=== PATIENT | female | born 1960 | race Hispanic/Latino ===

== ENCOUNTER 2016-12-07 09:04 | Outpatient (CLI) | payer MEDICARE ==
--- NOTE | 2016-12-07 10:58 | RAD ---
SIX VIEWS CERVICAL SPINE: History: Neck pain, bilateral arm pain and numbness. FINDINGS: There is post-surgical spinal instrumentation spanning C3 through T1. Articular pillar screws are se en bilaterally at C3, C4, C5, C6 and T1. Instrumentation projects in the expected position. There ar e laminectomy changes seen from C3 through C6. There is slight anterolisthesis seen of C2 on C3 that is accentuated with flexion and reduced with extension. Prevertebral soft tissues are normal appear ing. Lung apices are clear. Lateral masses are symmetric. IMPRESSION: 1. Posterolateral spinal fusion from C3 through T1. 2. Abnormal anterior translation of C2 on C3 with abnormal translational motion as above. This is li durga related to adjacent signal degenerative change. 3. Multilevel moderate spondylosis of the cervical spine. POS: ZULLY
--- NOTE | 2016-12-07 11:41 | CT ---
CT OF THE CERVICAL SPINE WITHOUT CONTRAST: Indication: Neck pain with bilateral arm pain and numbness. Comparison: 07-28-14 FINDINGS: The posterolateral spinal instrumentation spanning C3 through T1 appears similar to the comparison e xamination. Laminectomies from C3 through C6 are stable. There is advanced facet joint degenerative change seen on the left at C2-3 which appears to have pro gressed from the prior exam. There is moderate right facet joint degenerative change. There is uncal vertebral hypertrophy. Constellation of findings induces mild to moderate bilateral osseous neural foraminal narrowing. C3-4: There is no appreciable osseous central canal or neural foraminal narrowing. C4-5: There is no appreciable osseous central canal or neural foraminal narrowing. C5-6: There is some residual uncal vertebral hypertrophy on the right inducing mild to moderate righ t neural foraminal narrowing. C6-7: There is no appreciable osseous central canal or neural foraminal narrowing. C7-T1: There is no appreciable osseous central canal or neural foraminal narrowing. T1-2: There is no appreciable central canal or neural foraminal narrowing. IMPRESSION: 1. Worsening adjacent segment degeneration at C2-3 with mild to moderate bilateral neural foraminal narrowing. 2. Mild to moderate right neural foraminal narrowing at C5-6. 3. Post-operative change of the cervical spine. POS: ZULLY
== END 2016-12-07 09:05 | disposition home or self-care (01) ==
LOC: TBSIIMAG 09:04
PROVIDERS: ATTEND Surgery
DX: M47.22 Other spondylosis with radiculopathy, cervical region (principal); M99.51 Intervertebral disc stenosis of neural canal of cervical region; Z98.890 Other specified postprocedural states
CPT/HCPCS: 72050; 72125

== ENCOUNTER 2017-05-18 08:30 | Outpatient (CLI) | payer MEDICARE ==
--- NOTE | 2017-05-18 10:33 | ULT ---
ULTRASOUND OF THE SPLEEN: Date: 05/18/17 HISTORY: Patient with polycythemia. Evaluate for spleen size. FINDINGS: The spleen measures 9.6 cm in greatest dimension. There are a few scattered echogenic foci seen withi n the spleen suggesting splenic granulomata. Arterial Doppler evaluation of the splenic artery does d emonstrate arterial waveform. Venous waveform is seen within the spleen vein, and this does demonstra te normal directional flow. No free fluid is seen in the left upper quadrant. IMPRESSION: 1. The spleen is normal in size without evidence of splenomegaly. Calcified granulomata are seen in the spleen. 2. Normal directional flow seen in the splenic vein with Doppler evaluation demonstrating arterial w aveform in the splenic artery. POS: H
== END 2017-05-18 08:31 | disposition home or self-care (01) ==
LOC: ULT 08:30
PROVIDERS: ATTEND Internal Medicine Medical Oncology
DX: D75.1 Secondary polycythemia (principal); R16.1 Splenomegaly, not elsewhere classified; D73.89 Other diseases of spleen
CPT/HCPCS: 76705

== ENCOUNTER 2017-10-11 10:38 | Outpatient (CLI) | payer MEDICARE | END 2017-10-11 10:39 | disposition home or self-care (01) | LOC: BICMRI 10:38 | PROVIDERS: ATTEND Nurse Practitioner Family | DX: M51.17 Intervertebral disc disorders with radiculopathy, lumbosacral region (principal); M48.061 Spinal stenosis, lumbar region without neurogenic claudication; M48.07 Spinal stenosis, lumbosacral region; M99.83 Other biomechanical lesions of lumbar region | CPT/HCPCS: 72148 ==

== ENCOUNTER 2019-02-12 11:56 | Day surgery (SDC) | payer MEDICARE ==
[2019-02-11 14:48] VITALS: BMI 36.3
[~2019-02-12 11:56] MED LIST: PROPOFOL 200 MG/20 ML VIAL ONE
[2019-02-12] MEDS ORDERED: Ketamine 50 MG/ML (10ML VIAL) ONE (12:00)
[2019-02-12] MEDS ORDERED: Fentanyl 100 MCG/2 ML VIAL ONE (12:00)
[2019-02-12] MEDS ORDERED: Midazolam HCl 2 mg/2 ml Vial ONE (12:00)
[2019-02-12] MEDS ORDERED: Propofol 1,000 MG/100 ML VIAL IV ONE (12:00)
[2019-02-12] MEDS ORDERED: Bupivacaine PF 0.5% 30 ML VIAL ONE (13:29)
[2019-02-12] MEDS ORDERED: EPINEPHrine 1 MG/ML AMP ONE (13:29)
[2019-02-12] MEDS ORDERED: Morphine 2 MG/ML SYRINGE ONE ×2 (16:44→17:05)
--- NOTE | 2019-02-12 19:09 | RAD ---
CERVICAL SPINE: 02/12/19 A single AP projection taken in the OR with fluoroscopy. INDICATIONS: Dorsal column stimulator placement. FINDINGS/IMPRESSION: The leads overlie the upper thoracic and lower cervical spine on this single AP projection. Pedicle s crews and rods are seen throughout the visualized cervical spine. POS: OFF
--- NOTE | 2019-02-13 00:04 | OP ---
DATE OF PROCEDURE: 02/12/2019 PREOPERATIVE DIAGNOSES: 1. Postlaminectomy syndrome. 2. Chronic pain syndrome. 3. Cervical radiculopathy. POSTOPERATIVE DIAGNOSES: 1. Postlaminectomy syndrome. 2. Chronic pain syndrome. 3. Cervical radiculopathy. PROCEDURES PERFORMED: 1. Spinal cord stimulator generator implant. 2. Spinal cord stimulator lead implant x2. BLOOD LOSS: 5 mL. DESCRIPTION OF PROCEDURE: The patient was taken to the procedure room and placed prone on the procedure room table. A time-out was performed. Using DuraPrep, we cleansed the back and sterile drapes were applied. Using fluoroscopy, we located the interspace of T3-T4. We anesthetized the skin with 0.5% Marcaine with epinephrine. We inserted the supplied Touhy needle in a paramedian fashion and engaged ligament. Loss of resistance to air was used to achieve access to the epidural space. An 8-contact lead was then threaded up the midline dorsal epidural space using continuous fluoroscopy up to the mid body of C6. A contralateral lead was placed using the exact same technique on the contralateral side, and stimulation was then performed with the patient awake and the patient noted paresthesia in all pain areas. We then made an incision between the two leads, and we gradually brought the leads through the insertion point and down into the incision made. Anchors were placed over the leads and inserted down to fascia. These were clicked to secure them to the leads. We then used 2-0 silk suture x2 for each lead to secure them to the fascia. The skin was anesthetized in the right upper buttock. The scalpel was used to make an incision. This was blunt dissected down to Lexie fascia. We then used a tunneling device to make a tunnel between the two incisions. The lead was then placed through the tunneling device and advanced to the battery pocket. The leads were then inserted into the battery. These were then secured to the battery using a torque wrench. The battery was inserted into the pocket. We then used 2-0 Vicryl suture in simple interrupted fashion in multiple layers to close the fascial layers. 3-0 Rapide Vicryl was used for a subcuticular stitch. Dermabond was placed as an occlusive dressing over both incisions. The patient was taken to the PACU under stable condition. Job ID: [id number]
== END 2019-02-12 17:45 | disposition home or self-care (01) ==
LOC: SDC 11:56
PROVIDERS: ATTEND Specialist
PROC: 0JH70DZ Insertion of Multiple Array Stimulator Generator into Back Subcutaneous Tissue and Fascia, Open Approach (ICD-10-PCS; principal; 2019-02-12)
PROC: 00HU3MZ Insertion of Neurostimulator Lead into Spinal Canal, Percutaneous Approach (ICD-10-PCS; 2019-02-12)
DX: M96.1 Postlaminectomy syndrome, not elsewhere classified (principal); G89.4 Chronic pain syndrome; M54.12 Radiculopathy, cervical region; Z79.4 Long term (current) use of insulin; Z79.899 Other long term (current) drug therapy; Z91.048 Other nonmedicinal substance allergy status
CPT/HCPCS: 72020; 76000; J0171; J0690; J2250; J2270; J2704; J3010; S0020

== ENCOUNTER 2019-03-28 09:51 | Outpatient (CLI) | payer MEDICARE ==
--- NOTE | 2019-03-28 12:03 | RAD ---
EXAM: XR Lumbar Spine Min 4 View PROVIDED CLINICAL HISTORY: Lumbar spondylosis. Patient states pain extending down bilateral legs. COMPARISON: 11/25/2012 FINDINGS: There are 5 nonrib-bearing lumbar-type vertebral bodies. Multilevel osteophytes are seen predominantl y involving the lower lumbar spine. There is severe narrowing of the L4-5 and L5-S1 intervertebral disc spaces. There does appear to be mild grade 1 anterolisthesis of L5 on S1 although the exact degr ee is difficult to measure due to overlying iliac bones. There is trace retrolisthesis of L4 on L5. The vertebral body heights are within normal limits. Multilevel osteophytes are identified. Definitiv e abnormal translational motion is not seen, but this is again difficult to evaluate secondary to overlying iliac bones. Vascular calcifications are seen in the abdominal aorta and involving the iliac arteries. IMPRESSION: 1. Degenerative changes predominantly involving the lower lumbar spine. 2. Grade 1 anterolisthesis of L5 on S1. The degree of listhesis is difficult to adequately measure du e to overlying iliac bones but measures approximately 1.3 cm.
== END 2019-03-28 09:52 | disposition home or self-care (01) ==
LOC: BICRAD 09:51
PROVIDERS: ATTEND Nurse Practitioner Family
DX: M43.06 Spondylolysis, lumbar region (principal); M43.17 Spondylolisthesis, lumbosacral region
CPT/HCPCS: 72110

== ENCOUNTER 2019-12-30 16:44 | Emergency (ER) | payer MEDICARE ==
--- NOTE | 2019-12-30 17:46 | ULT ---
EXAM: US Soft Tissue Other PROVIDED CLINICAL HISTORY: Patient with dorsal column stimulator device in place with pain over lying the region of the battery pack. COMPARISON: None FINDINGS/IMPRESSION: Limited sonographic evaluation of the right gluteal soft tissues was performed. There is a large area of shadowing in the right gluteal soft tissues likely corresponding to metallic battery pack seen on recent lumbar radiograph on 03/28/2019. No definitive fluid is able to be delineated in this region . Just superior to this region is an echogenic structure with posterior shadowing with question minimal surrounding fluid which may represent small amount of fluid surrounding the visualized proxim al AICD lead. This is difficult to definitively confirm on this exam.
== END 2019-12-30 17:44 | disposition home or self-care (01) ==
LOC: ERS 16:44
DX: T84.498A Other mechanical complication of other internal orthopedic devices, implants and grafts, initial encounter (principal); E11.9 Type 2 diabetes mellitus without complications; K21.9 Gastro-esophageal reflux disease without esophagitis; E78.5 Hyperlipidemia, unspecified; I10 Essential (primary) hypertension; F32.9 Major depressive disorder, single episode, unspecified; F41.9 Anxiety disorder, unspecified; Z79.899 Other long term (current) drug therapy; Z79.4 Long term (current) use of insulin
CPT/HCPCS: 76999

== ENCOUNTER 2020-01-30 06:53 | Outpatient (CLI) | payer MEDICARE ==
[2020-01-31 03:07] LABS: SARS-CoV-2 MS2 Positive; SARS-CoV-2 N Gene Negative; SARS-CoV-2 S Gene Negative; SARS-CoV-2 by NAA Not Detected (NotDetected); SARS-CoV-2 orf1ab Negative
== END 2020-01-30 06:54 | disposition home or self-care (01) ==
LOC: LABBT 06:53
PROVIDERS: ATTEND Specialist
DX: Z20.828 Contact with and (suspected) exposure to other viral communicable diseases (principal)
CPT/HCPCS: 87635; U0003

== ENCOUNTER 2020-02-04 11:53 | Day surgery (SDC) | payer MEDICARE ==
[~2020-02-04 11:53] MED LIST changes: +Dexamethasone 20 MG/5 ML VIAL ONE; +Glycopyrrolate 0.2 MG/ML 5 ML SYRINGE ONE; +Ketorolac Tromethamine 30 MG/ML VIAL ONE; +Lidocaine 1% PF 5 ML VIAL ONE; +Ondansetron PF 4 MG/2 ML Vial ONE; +PHENYLEPHRINE-NS 100 MCG/ML 10 ML SYRINGE ONE; +Rocuronium Bromide 10 MG/ML (10ML VIAL) ONE
[2020-02-04] MEDS ORDERED: EPINEPHrine 1 MG/ML AMP ONE (12:10)
[2020-02-04] MEDS ORDERED: Bupivacaine PF 0.5% 30 ML VIAL ONE (12:10)
[2020-02-04] MEDS ORDERED: Lidocaine 1% w/Epinephrine 1:100K 20 ML VIAL ONE (12:10)
[2020-02-04] MEDS ORDERED: Fentanyl 100 MCG/2 ML VIAL ONE ×3 (12:41→15:22)
--- NOTE | 2020-02-04 23:35 | OP ---
DATE OF PROCEDURE: 02/04/2020 PREOPERATIVE DIAGNOSES: 1. Post-laminectomy syndrome. 2. Chronic pain syndrome. 3. Cervical radiculopathy. POSTOPERATIVE DIAGNOSES: 1. Post-laminectomy syndrome. 2. Chronic pain syndrome. 3. Cervical radiculopathy. PROCEDURE PERFORMED: 1. Spinal cord stimulator generator removal. 2. Spinal cord stimulator lead removal x2. 3. Spinal cord stimulator anchor removal x2. SPECIMENS REMOVED: 1. Spinal cord stimulator generator. 2. Spinal cord stimulator leads x2. 3. Spinal cord stimulator anchors x2. DESCRIPTION OF PROCEDURE: The patient was taken to the operating room and placed prone on the operating room table. Back was prepped with DuraPrep. Sterile drapes were applied. We located the anchors using fluoroscopy. We anesthetized the skin and made an incision and then blunt dissected this down to the anchors. We cut the anchors loose and gently pulled on the leads and they came out of the epidural space easily and intact. We then anesthetized the skin over the battery pocket and blunt dissected this down to the battery pocket. We removed the battery which came out easily. We found that the leads were extremely coiled and this apparently was coiled all the way up to the anchor sites. At the anchor site, there were fractured leads. The insulation around the leads were intact, however, we can see the wires are fractured at this point. The leads were released from the battery and they were pulled through gently to the anchor site and they came out intact. The battery was also removed. We irrigated with saline and then we used the Bovie to cut out the scar tissues that exposed the battery pocket. We then used 2-0 Vicryl sutures battery pocket with simple interrupted sutures. We approximated the fascial layers using 2-0 Vicryl sutures in simple interrupted and horizontal mattress type stitches in multiple layers. We then used 3-0 repeat to approximate the skin layer and used a layer of Dermabond as an occlusive dressing. Once this was dry, we placed sterile 4x4s over the incisions and used paper tape to secure this to skin. The patient was taken to the PACU under stable condition. Job ID: [id number]
== END 2020-02-04 17:00 | disposition home or self-care (01) ==
LOC: SDC 11:53
PROVIDERS: ATTEND Specialist
PROC: 00PU3MZ Removal of Neurostimulator Lead from Spinal Canal, Percutaneous Approach (ICD-10-PCS; principal; 2020-02-04)
PROC: 0JPT0MZ Removal of Stimulator Generator from Trunk Subcutaneous Tissue and Fascia, Open Approach (ICD-10-PCS; 2020-02-04)
DX: T85.112A Breakdown (mechanical) of implanted electronic neurostimulator of spinal cord electrode (lead), initial encounter (principal); T85.840A Pain due to nervous system prosthetic devices, implants and grafts, initial encounter; M96.1 Postlaminectomy syndrome, not elsewhere classified; G89.4 Chronic pain syndrome; M47.22 Other spondylosis with radiculopathy, cervical region; M50.120 Mid-cervical disc disorder, unspecified level; M48.02 Spinal stenosis, cervical region; M47.26 Other spondylosis with radiculopathy, lumbar region; M51.16 Intervertebral disc disorders with radiculopathy, lumbar region; M51.17 Intervertebral disc disorders with radiculopathy, lumbosacral region; I10 Essential (primary) hypertension; F32.9 Major depressive disorder, single episode, unspecified; F41.9 Anxiety disorder, unspecified; E78.5 Hyperlipidemia, unspecified; E11.40 Type 2 diabetes mellitus with diabetic neuropathy, unspecified; F17.200 Nicotine dependence, unspecified, uncomplicated; Z79.84 Long term (current) use of oral hypoglycemic drugs; Z79.891 Long term (current) use of opiate analgesic; Z79.899 Other long term (current) drug therapy; Z91.048 Other nonmedicinal substance allergy status; Z98.1 Arthrodesis status
CPT/HCPCS: 76000; J0171; J0690; J1100; J1885; J2405; J2704; J3010; S0020

== ENCOUNTER 2020-06-03 08:54 | Outpatient (CLI) | payer MEDICARE | END 2020-06-03 08:55 | disposition home or self-care (01) | LOC: BICMAMMO 08:54 | PROVIDERS: ATTEND Internal Medicine | DX: Z12.31 Encounter for screening mammogram for malignant neoplasm of breast (principal) | CPT/HCPCS: 77063; 77067 ==

== ENCOUNTER 2021-11-02 07:28 | Outpatient (CLI) | payer MEDICARE | END 2021-11-02 07:29 | disposition home or self-care (01) | LOC: BICRAD 07:28 | PROVIDERS: ATTEND Nurse Practitioner Family | DX: M54.6 Pain in thoracic spine (principal); M47.814 Spondylosis without myelopathy or radiculopathy, thoracic region | CPT/HCPCS: 72070 ==